=== PATIENT | female | born 1990 | race Caucasian/White ===

== ENCOUNTER 2021-01-01 00:23 | Emergency (ER) | payer OTHER ==
[2021-01-01 01:11] LABS: HEMOGLOBIN 10.6 gm/dl (12.3-15.3); RED BLOOD COUNT 4.38 M/UL (4.00-5.10); WHITE BLOOD COUNT 9.7 K/UL (4.5-11.0)
[2021-01-01 01:34] LABS: BUN/CREATININE RATIO 16 (0-10)
[2021-01-01] MEDS ORDERED: MIRALAX 119 GR119 GM GT (06:13)
== END 2021-01-01 06:25 | disposition home or self-care (01) ==
LOC: ER1 00:23
PROVIDERS: Family Medicine
DX: N83.209 Unspecified ovarian cyst, unspecified side (principal); K59.00 Constipation, unspecified
CPT/HCPCS: 80053; 81001; 83690; 84703; 85025; 96374; 96375; 99284; J2270; J2405; Q9967